=== PATIENT | female | born 1950 | race Caucasian/White ===

== ENCOUNTER → 2019-03-10 | Outpatient (CLI) | payer OTHER ==
--- NOTE | 2019-03-10 16:53 | PCVCIMAG ---
EXAM: DUPLEX ULTRASOUND OF THE RIGHT GROIN INDICATION: Groin swelling and pain. FINDINGS: 2.0 x 2.9 x 3.1 cm pseudoaneurysm is noted arising from the common femoral artery. The common femoral artery and vein are patent. No arteriovenous fistula is seen. IMPRESSION: Right groin pseudoaneurysm as detailed above. Results were communicated with Dr. Mar's nurse. LOC:[id number]
== END | disposition home or self-care (01) ==
LOC: PCVCIMAG 14:49
PROVIDERS: ATTEND Internal Medicine
DX: R19.09 Other intra-abdominal and pelvic swelling, mass and lump (principal); R10.30 Lower abdominal pain, unspecified; I72.9 Aneurysm of unspecified site
CPT/HCPCS: 93926

== ENCOUNTER → 2019-03-15 | Outpatient (CLI) | payer OTHER ==
--- NOTE | 2019-03-15 14:12 | PCVCIMAG ---
EXAM: DUPLEX ULTRASOUND OF THE RIGHT GROIN INDICATION: Groin swelling and pain. FINDINGS: No pseudoaneurysm is present. The common femoral artery and vein are patent. No arteriovenous fistula is seen. Incidental note is made of a 2.2 x 2.4 x 3.4 cm subcutaneous hematoma right groin laterally and a 1.9 x 2.2 x 2.0 cm subcutaneous hematoma right groin medially. IMPRESSION: Study is negative for pseudoaneurysm. LOC:[id number]
== END | disposition home or self-care (01) ==
LOC: PCVCIMAG 13:22
PROVIDERS: ATTEND Internal Medicine
DX: I97.89 Other postprocedural complications and disorders of the circulatory system, not elsewhere classified (principal); R10.31 Right lower quadrant pain
CPT/HCPCS: 93926